=== PATIENT | female | born 1975 | race Two or more races ===

== ENCOUNTER 2025-04-19 07:49 | Emergency (ER) | payer MEDICAID, SELFPAY ==
[2025-04-19 07:50] VITALS: BMI 16.8
[2025-04-19 07:57] VITALS: BP 129/76; PULSE 78; RESP 17; TEMP 36.8; O2SAT 96
--- NOTE | 2025-04-19 08:05 | XR_ITS ---
Examination: CT abdomen and pelvis without contrast. Coronal 3-D reconstructions. Sagittal 2-D reconstructions. Date and time of exam:April 28, 2025, 1010 hours INDICATIONS: Bilateral pelvic pain bilateral flank pain and dysuria one week CTDI: vol (mGy): 4.22 DLP: (mGycm): 214 Technique: Axial images of the abdomen have been obtained, 3 mm slice thickness Intravenous contrast material has not been administered. Low dose protocols were performed. One or more of the following dose reduction techniques were used; automated exposure control, adjustment of the mA and/or KV according to patient size, use of iterative reconstruction technique. Findings: Soft nodular opacities in both lower lung zones as well as right middle lobe No visualized liver or splenic lesion Contracted gallbladder No pancreatic mass No renal or ureteral calculi, no hydronephrosis Aorta normal size Normal appendix No bowel obstruction No diverticulitis Retroverted uterus Urinary bladder wall thickening up to 5 mm Intact osseous structures IMPRESSION: Soft nodular opacities in both lower lung zones, differential would include early pneumonia, recommend PA lateral chest follow-up No renal or ureteral calculi, no hydronephrosis Normal appendix Urinary bladder wall thickening up to 5 mm, consider cystitis
--- NOTE | 2025-04-19 08:06 | EDRME_ITS ---
Rapid Medical Screening Exam RME Arrival date/time: 04/19/25 07:49 49-year-old female with no known medical history presents to the emergency room with a chief complaint of bilateral pelvic pain, bilateral flank pain, dysuria x 1 week I have greeted and performed a focused initial assessment of this patient. A c omprehensive ED assessment and evaluation of the patient, analysis of all test results, and completion of the medical decision making process will be conducted by additional ED providers. Chief Complaint: General Adult/Misc Complain Vital signs: Vital Signs Temperature 98.2 F 04/19/25 07:57 Pulse Rate 78 04/19/25 07:57 Respiratory Rate 17 04/19/25 07:57 Blood Pressure 129/76 04/19/25 07:57 Pulse Oximetry (%) 96 04/19/25 07:57 Oxygen Delivery Method Room Air 04/19/25 07:57 Vital signs reviewed by provider: Yes
[2025-04-19] MEDS: KETOROLAC INJ 60 MG/2 ML VIAL 30 MG IM (08:22)
[2025-04-19 09:14] LABS: Collection Type, Urine Clean Catch
[2025-04-19 09:20] LABS: HCG Qualitative,Urine Negative
[2025-04-19 09:25] LABS: Basophils # (Auto) 0.1 Thou/mm3 (0.0-0.2); Basophils % (Auto) 1 % (0-2.5); Eosinophils # (Auto) 0.2 Thou/mm3 (0.0-0.5); Eosinophils % (Auto) 2 % (0-10); Hematocrit 33.9 % (36.0-46.0); Hemoglobin 10.9 g/dL (12.0-16.0); Immature Granulocytes Auto 0.04 Thou/mm3 (0.00-0.00); Lymphocytes # (Auto) 1.8 Thou/mm3 (1.0-4.8); Lymphocytes % (Auto) 17 % (10-50); Mean Corpuscular HGB Conc 32.2 g/dl (31.0-37.0); Mean Corpuscular Hemoglobin 23.0 pg (25.0-35.0); Mean Corpuscular Volume 72 fL (80-100); Monocytes # (Auto) 0.8 Thou/mm3 (0.0-0.8); Monocytes % (Auto) 8 % (0-12); Neutrophils # (Auto) 7.5 Thou/mm3 (1.8-7.7); Neutrophils % (Auto) 72 % (37-80); Nucleated Red Blood Cell # 0.00 Thou/mm3 (0.00-0.00); Nucleated Red Blood Cell % 0 /100 WBC (0); Platelet Count 345 Thou/mm3 (140-440); RDW Standard Deviation 38.6 fL (36.4-46.3); Red Blood Count 4.73 Miln/mm3 (4.00-5.20); White Blood Count 10.4 Thou/mm3 (3.6-11.0)
[2025-04-19 09:33] LABS: Bacteria,Urine Rare; Bilirubin,Urine Negative (Negative); Blood,Urine 3+ (Negative); Color,Urine Yellow (Lt Yel-Yel); Glucose, Urine Negative (Negative); Ketones,Urine Negative (Negative); Leukocyte Esterase,Urine Positive (Negative); Nitrite,Urine Positive (Negative); PH,Urine 6.0 (5.0-7.0); Protein,Urine 1+ (Neg - Trace); RBC,Urine 83 /hpf (0-3); Specific Gravity,Urine 1.015 (1.001-1.035); Squamous Epithelial Cell,Urine 5 /hpf (0-5); Urobilinogen,Urine Negative mg/dL (0.0-1.0); WBC,Urine 934 /hpf (0-5)
[2025-04-19 09:42] LABS: Alanine Aminotransferase 16 U/L (10-49); Albumin, Serum 4.1 gm/dL (3.5-5.0); Albumin/Globulin Ratio 1.1 (1.2-2.2); Alkaline Phosphatase 66 U/L (46-116); Anion Gap 5 (7-16); Aspartate Amino Transferase 28 U/L (0-34); BUN/Creatinine Ratio 6 Ratio (12-20); Bilirubin,Total 0.6 mg/dL (0.3-1.2); Blood Urea Nitrogen < 5 mg/dL (9-23); Calcium 9.0 mg/dL (8.3-10.6); Calcium (Corrected) 9.0 mg/dL (8.5-10.1); Carbon Dioxide 27.3 mMol/L (20.0-31.0); Chloride 106 mMol/L (98-107); Creatinine (Component) 0.8 mg/dL (0.6-1.3); Estimated Creatinine Clearance 57.3 mL/min (>60); Globulin 3.7 gm/dL (2.3-3.5); Glucose 96 mg/dL (74-106); Lipase 28 U/L (12-53); Osmolality,Calculated 272 (275-295); Potassium 3.8 mMol/L (3.4-5.1); Sodium 138 mMol/L (136-145); Total Protein 7.8 gm/dL (5.7-8.2); eGFR > 60 See Note
[2025-04-19 09:45] LABS: Clarity,Urine Cloudy (Clear/Hazy)
--- NOTE | 2025-04-19 15:51 | PD.EDADULT ---
ED General RME/HPI General Chief complaint: General Adult/Misc Complain Stated complaint: SEVERE BLADDER/FLANK PAIN Time Seen by Provider: 04/19/25 15:50 Arrival date/time: 04/19/25 07:49 49-year-old female with a past medical history of cystitis, bladder prolapse, treated childhood tuberculosis presents to the ED with a 5-day complaint 1 week history of dysuria, frequency and low back pain. She denies any fever, chills, nausea or vomiting, diarrhea or abdominal pain. RME / HPI RME / HPI narrative: 04/19/25 07:49 49-year-old female with no known medical history presents to the emergency room with a chief complaint of bilateral pelvic pain, bilateral flank pain, dysuria x 1 week I have greeted and performed a focused initial assessment of this patient. A comprehensive ED assessment and evaluation of the patient, analysis of all test results, and completion of the medical decision making process will be conducted by additional ED providers. Related Data Previous Rx's ?Medication ?Instructions ?Recorded amoxicillin 875 mg-potassium 1 tab PO BID #14 tabs 04/19/25 clavulanate 125 mg tablet Allergies Allergy/AdvReac Type Severity Reaction Status Date / Time No Known Allergies Allergy Verified 04/19/25 07:53 Course Orders Category Date Time Status CT abdomen pelvis wo con Stat Exams 04/19/25 08:05 Completed CBC Stat Lab 04/19/25 09:12 Completed CMP [Comprehensive Metabolic Panel] Stat Lab 04/19/25 09:12 Completed HCG Qualitative,Urine Stat Lab 04/19/25 09:00 Completed Lipase Stat Lab 04/19/25 09:12 Completed UA [Urinalysis] Stat Lab 04/19/25 09:00 Completed Urine Culture Stat Lab 04/19/25 09:00 Received Ketorolac Inj [Toradol Inj] Med 04/19/25 08:05 Discontinued 30 mg IM X1 ONE cefTRIAXone [Rocephin] 1,000 mg Med 04/19/25 15:52 Discontinued Lidocaine 1% 20 ml [Xylocaine 1% 20 ML] 2.1 ml IM X1 Vital Signs Vital signs: Vital Signs Temperature 98.2 F 04/19/25 07:57 Pulse Rate 78 04/19/25 07:57 Respiratory Rate 17 04/19/25 07:57 Blood Pressure 129/76 04/19/25 07:57 Pulse Oximetry (%) 96 04/19/25 07:57 Oxygen Delivery Method Room Air 04/19/25 07:57 Discharge Plan Plan Patient Disposition: HOME (Self Care) Discharge Disposition comment: Stable Prescriptions/Referrals Prescriptions/Med Rec: New amoxicillin-pot clavulanate 875-125 mg tablet 1 tab PO BID Qty: 14 0RF Referrals: Robina Anderson MD [Primary Care Provider] - In 1 week Problem List Clinical Impression: Urinary tract infection Patient/Caregiver Discharge Instructions Education Materials: ED CYSTITIS Female Adult Additional Instructions: Take your antibiotics as prescribed and complete the course even though you may be feeling better. A culture of the urine is being performed. It may be necessary to change your antibiotics if the culture grows something different than the usual bacteria that causes UTIs. Follow-up with your primary care physician in 24 to 48 hours. Return to the ED for any new or worsening symptoms. Print Language: Bangladeshi Stand Alone Forms: [employer] Award Info., Patient Portal Info Letter PA/ELIZA Supervising Physician PA/ELIZA Supervising Physician: Dr. Duong [facility] Medication Administration(s) Medication Administration History Discontinued Medications Ceftriaxone Sodium 1,000 mg/ (Lidocaine HCl 2.1 ml) 0 mg IM X1 ONE Stop: 04/19/25 15:53 Last Admin: 04/19/25 16:27 Dose: 1,000 mg Documented By: MIRNA Ketorolac Tromethamine (Ketorolac Inj 60 Mg/2 Ml Vial) 30 mg IM X1 ONE Stop: 04/19/25 08:06 Last Admin: 04/19/25 08:22 Dose: 30 mg Documented By: GREGG
[2025-04-19] MEDS: cefTRIAXone 1,000 MG, LIDOCAINE 1% 20 ML 2.1 ML IM (16:27)
[2025-04-19 16:53] VITALS: BP 122/68; PULSE 78; RESP 18; TEMP 36.8; O2SAT 100
== END 2025-04-19 16:54 | disposition home or self-care (01) ==
PROVIDERS: Nurse Practitioner Family; Emergency Provider Emergency Medicine; PCP Family Medicine
DX: N39.0 Urinary tract infection, site not specified (principal); R91.8 Other nonspecific abnormal finding of lung field
CPT/HCPCS: 36415; 74176; 80053; 81001; 81025; 83690; 85025; 87077; 87086; 87186; 96372; 99284; J0696; J1885; J3490

== ENCOUNTER → 2025-06-21 | Outpatient (CLI) | payer MEDICAID, SELFPAY ==
--- NOTE | 2025-06-21 09:00 | XR_ITS ---
Examination: Screening digital mammography, bilateral Computer aided detection 3-D breast Tomosynthesis, bilateral Date and time of exam: June 21, 2025 0853 hours Compared to mammograms dating to December 16, 2022 Indication: Screening Technique: Nonmagnified MLO, CC views of the breasts to been obtained, reconstructed from 3-D Tomosynthesis images. R2 computer aided detection program utilized for evaluation of suspicious masses and/or abnormal calcifications. 3-D Tomosynthesis images obtained. Findings: The breasts are heterogeneously dense, which may obscure small masses Benign calcifications. 4 mm focal asymmetry inner left breast CC view, 4.7 cm from the nipple Impression: BI-RADS Category 0: Incomplete: Need additional imaging evaluation 4 mm focal asymmetry inner left breast CC view, 4.7 cm from the nipple Recommend follow-up spot tomographic views inner upper quadrant right breast right breast sonography to complete the workup.
== END | disposition home or self-care (01) ==
LOC: CDIM 08:45
PROVIDERS: Referring Provider Family Medicine; Visit Provider Family Medicine
DX: Z12.31 Encounter for screening mammogram for malignant neoplasm of breast (principal); N64.89 Other specified disorders of breast
CPT/HCPCS: 77063; 77067

== ENCOUNTER → 2025-07-26 | Outpatient (CLI) | payer MEDICAID, SELFPAY ==
--- NOTE | 2025-07-26 10:12 | XR_ITS ---
Examination: Breast ultrasound, unilateral, left Date and time of exam: July 26, 2025, 10:42 a.m. INDICATIONS: Mammogram 9-second 2024 4 mm focal asymmetry inner left breast cc view Technique: Real-time phan scale ultrasonographic imaging performed left breast including all 4 quadrants as well as nipple retroareolar and axillary region. Findings: 3:00 cyst 3 x 3 mm No solid nodules IMPRESSION: BI-RADS Category 2: Benign findings
--- NOTE | 2025-07-26 10:12 | XR_ITS ---
Examination: Diagnostic digital mammography, unilateral, right Computer aided detection 3-D breast Tomosynthesis, unilateral Date and time of exam: July 26, 2025, 1145 hours INDICATIONS: Mammogram 06/21/2025 4 mm focal asymmetry inner right breast on the cc view, 4.7 cm from the nipple Technique: Nonmagnified MLO, CC views of the right breast have been obtained, reconstructed from 3-D Tomosynthesis images. R2 computer aided detection program utilized for evaluation of suspicious masses and/or abnormal calcifications. 3-D Tomosynthesis images obtained. Findings: The breast is heterogeneously dense, which may obscure small masses No suspicious masses noted on the spot compression views Impression: BI-RADS category 2: Benign findings Return to yearly follow-up mammography
== END | disposition home or self-care (01) ==
LOC: CDIM 09:47
PROVIDERS: PCP Family Medicine; Referring Provider Family Medicine; Visit Provider Family Medicine
DX: R92.322 Mammographic fibroglandular density, left breast (principal)
CPT/HCPCS: 76641; 77061; 77065; G0279